=== PATIENT | female | born 2000 | race Caucasian/White ===

== ENCOUNTER 2018-05-30 13:37 | Emergency (ER) | payer SELFPAY ==
[~2018-05-30] VITALS: Ht 170.2 cm; Wt 54.7 kg
[2018-05-30 13:45] VITALS: BP 128/78; PULSE 78; RESP 18; Ht 170.2 cm; Wt 54.7 kg
[2018-05-30] MEDS ORDERED: ACET325T33 PO (15:08)
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
== END 2018-05-30 15:13 | disposition home or self-care (01) ==
LOC: FTE 13:37
DX: S01.111A Laceration without foreign body of right eyelid and periocular area, initial encounter (principal); W22.8XXA Striking against or struck by other objects, initial encounter; Y92.9 Unspecified place or not applicable
CPT/HCPCS: 99282